=== PATIENT | female | born 1980 | race Caucasian/White ===

== ENCOUNTER 2018-04-01 18:42 | Emergency (ER) | payer OTHER ==
[~2018-04-01] VITALS: Ht 160 cm; Wt 76.9 kg
[2018-04-01 18:56] VITALS: BP 138/91
--- NOTE | 2018-04-01 19:17 | NUR ---
AMBULATED TO ER BED 5.
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
--- NOTE | 2018-04-01 21:25 | NUR ---
DR CHAUDHARI AT BEDSIDE
[2018-04-01] MEDS ORDERED: ACETAMINOPHEN EXTRA STRENGTH 500 MG TAB PO ONE (21:30)
--- NOTE | 2018-04-01 21:52 | NUR ---
PT TAKEN TO CT
--- NOTE | 2018-04-01 22:01 | NUR ---
PT BACK FROM CT
--- NOTE | 2018-04-01 22:11 | NUR ---
PT RESTING IN BED, PT REPORTS 4/10 HEADACHE AFTER TYLENOL PO. RR EVEN AND UNLABORED, VSS. ALL NEEDS MET. AWAITING CT RESULTS.
[2018-04-01 23:02] VITALS: BP 120/70
--- NOTE | 2018-04-01 23:03 | NUR ---
Patient discharged with v/s stable. Written and verbal after care instructions given and explained. Patient verbalized understanding. Ambulatory with steady gait. All questions addressed prior to discharge. Advised to follow up with PMD.
== END 2018-04-01 23:03 | disposition home or self-care (01) ==
LOC: MED 18:42
DX: S09.90XA Unspecified injury of head, initial encounter (principal); W22.03XA Walked into furniture, initial encounter; Y93.89 Activity, other specified; Y92.89 Other specified places as the place of occurrence of the external cause; Y99.8 Other external cause status
CPT/HCPCS: 70450; 72125; 99284